=== PATIENT | male | born 1985 | race Caucasian/White ===

== ENCOUNTER → 2020-05-16 | Outpatient (CLI) | payer OTHER ==
[~2020-05-16] VITALS: Ht 193 cm; Wt 102.1 kg
[~2020-05-16] MED LIST: AMBIEN5 MG PO; BACLOFEN 10MG T10 MG PO; BUPROPION HCL150 M1 PO; NABUMETONE 500500 M2 PO; PAMELOR25 MG PO; SUPER THERAVIT1 EACH PO; ZYRTEC10 M5 PO
--- NOTE | ~2020-05-16 | HPC ---
[facility] [place] [address] PAIN MANAGEMENT CONSULTATION Name: LORENZA CALHOUN Room #: REG [facility] M..#: [id number] Admission: 05/16/20 Attend Phys: Charles Lemon DO Discharge: Date of : 87 Report #: [id number] THIS REPORT FOR: cc: FAM - No family physician/PCP FAM - No family physician/PCP Charles Lemon DO ~ DATE OF SERVICE: 05/16/2020 REFERRING PHYSICIAN: Eliseo Leong MD CHIEF COMPLAINT: Neck pain and bilateral head pain. HISTORY OF PRESENT ILLNESS: As you know, the patient is a 35-year-old male with longstanding history of headache, pain that began in 1997. The patient does have a history of seizure disorder as a younger individual and this led to migraine headache treatments. He continued to experience symptoms, but in a more bilateral distribution. He has been seeing Neurology for some time and being treated for his ongoing headaches, but it was believed the symptoms he was experiencing might require surgical intervention. He was then sent to see Dr. Eliseo Leong at [facility] for this ongoing chronic headache symptom. At that time, he is rating pain at 10/10 in severity at its worst, 3/10 at its best. He was describing the pain as equal in character, radiating towards the supraorbital ridge bilaterally. It was associated with dizziness, lightheadedness, blurry vision, photophobia and phonophobia. Even reported some tingling in the hands. The patient was seen by Dr. Leong and advised that the findings of his cervical spine are such that surgical options would not be recommended. He was referred to our clinic to discuss interventional treatment options. The patient indicates today his pain is continuous. Describes the pain as shooting, aching, throbbing, pounding and sharp. Places current pain score 5/10, daily average at 5-6/10, worst pain has been is 10/10. The patient states that movement, bright lights and loud noises tend to exacerbate symptoms, but these are only at times when his headache is already present. Pain is improved with pain medications, lying down ice pads and darkness. He has been referred to our service to discuss interventional treatment options. PAST MEDICAL HISTORY: 1. Migraine headaches. 2. History of epilepsy and seizure activity. 3. Emotional problems. PAST SURGICAL HISTORY: Appendectomy. SOCIAL HISTORY: The patient denies tobacco, IV or illicit drug use. Admits to approximately 1 alcoholic beverage per week. 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 He is working, not receiving workmen's compensation nor is he trying to obtain discrete benefits. He is not in litigation in regards to pain. He is unaccompanied at today's visit. REVIEW OF SYSTEMS: Positive for weight gain, fatigue and weakness, frequent and recurrent headaches, wearing corrective eyewear, blurred and double vision, hearing loss with tinnitus, chronic sinus problems with rhinitis, sore throat, voice changes, shortness of breath with walking or lying flat, chest pains, frequent urination, nocturia, change of force or stream urination, lightheadedness and dizziness, fatigue and weakness, head injury, memory loss with confusion, nervousness, depression, insomnia, excessive thirst, urination, heat and cold intolerance. All other review of systems negative per 12-point review of systems other than those listed in history of present illness. Pain impact score 63/70, severe interference of daily activities secondary to pain. ALLERGIES: No reported drug allergies. CURRENT MEDICATIONS: Nortriptyline 25 mg p.o. at bedtime, zolpidem 5 mg p.o. at bedtime, bupropion SR 150 mg 3 times a day, multivitamin 1 tab per day, Zyrtec 10 mg once a day. IMAGING: MRI cervical spine shows cervical disk disease that is mild in nature with mild facet arthropathy. No central canal nor neural foraminal stenosis. There is some ligamentum flavum buckling and mild changes noted at the C5 and C6 level. PHYSICAL EXAMINATION: VITAL SIGNS: Blood pressure 137/91, pulse is 102, respiratory rate 16 and unlabored. The patient is 100% on room air, height 6 feet 4 inches tall, weight 225 pounds, BMI calculated 27.4. GENERAL: Well-developed, well-nourished, well-hydrated 35-year-old male appearing his stated age. He is in no acute distress, awake, alert and oriented x 3. Current pain score 5/10. HEENT: Normocephalic, atraumatic. Pupils equal, round and reactive. NEUROLOGIC: Speech is fluent. Extraocular muscles are intact. The patient is wearing a mask in compliance with COVID-19 regulations. LUNGS: Clear, no wheeze, rhonchi or rales. CARDIOVASCULAR: Regular. No appreciable gallop, no rub. ABDOMEN: Soft, nontender, nondistended, normoactive bowel sounds. EXTREMITIES: Show no clubbing, no cyanosis. No appreciable edema. MUSCULOSKELETAL: The patient does have some palpatory tenderness over the paraspinal musculature of cervical spine. No spinous process tenderness. Deep palpation over the C2-C3 facets correlating to the third occipital nerve cause intensification of pain with radiation in his typical distribution. Radiation [facility] [address] [place] [address] PAIN MANAGEMENT CONSULTATION Name: LORENZA CALHOUN Room #: REG [facility] Charis.#: [id number] Admission: 05/16/20 Attend Phys: Charles Lemon DO Discharge: Date of : 86 Report #: [id number] is towards the occiput and along what appears to be the greater occipital nerve distribution with palpation. There are some tactile changes according to the patient on the right over the periauricular area consistent with the inferior occipital distribution. Upper extremity strength is 5/5, intact to light touch from C5 through T1 dermatomes. Spurling's test is negative for any cervical radicular symptoms. Cervical provocation testing is met with increasing pain. There is significant palpatory tenderness throughout the paraspinal musculature of the cervical and upper thoracic area. ASSESSMENT: 1. Cervical facet arthropathy. 2. Cervical spondylosis without radiculopathy. 3. Cervicogenic headache. 4. Third occipital neuralgia. 5. Tension headaches. PLAN: 1. Based on today's physical exam and history the patient has provided, the description the patient uses in regards to pain as well as the bilateral nature of symptoms and the sensation of pressure radiating from the cervical region over the occiput and towards the supraorbital ridge. This is consistent with a tension-like headache. The fact that the patient is noticing ever increasing headache frequency and intensity also goes along with tension type headaches. The palpatory tenderness over the third occipital nerves bilaterally is consistent with a tension headache as well. The patient has received Botox injections in the past, but these need to be done at a much deeper level to affect the splenius capitis muscle more efficiently. He is going to be following up with his neurologist tomorrow and I do recommend possible use of deeper injections to address the splenius capitis muscle and the tension headaches that are present. We also discussed other treatment options from a pain management standpoint. The following was discussed with the patient today. We discussed physical therapy, stretching exercises and traction techniques as an option for treatment. This could be very effective and very conservative way of treating symptoms. We typically sent patients for trial of traction type devices, if the trial is successful, then we recommend the patient obtain one of the devices and utilize them consistently. We discussed with the patient suggestions in medication adjustments. This will be done with neuropathic medications as well as the addition of a possible muscle relaxant to assist in relaxing some of the paraspinal muscles of the cervical region. We discussed with the patient, also in addition of a consistent nonsteroidal anti-inflammatory, which can be quite beneficial. We discussed interventional treatments to address the facet arthropathy itself. This will be done with intraarticular facet injections. We also discussed more aggressive treatment options, though I do not feel at this time, the patient is a candidate. After reviewing these risks and benefits of all proposed treatment options, the [address] [address] PAIN MANAGEMENT CONSULTATION Name: LORENZA CALHOUN Room #: REG ROBBY Vera#: [id number] Admission: 05/16/20 Attend Phys: Charles Lemon DO Discharge: Date of : 86 Report #: [id number] patient chose to make the following adjustments. 2. The patient will be discussing with his neurologist tomorrow at their appointment the possibility of utilizing a deeper Botox injection to address the distribution of the third occipital nerve as it exits the cervical canal and prior to its entry into the paraspinal musculature piercing the musculature and giving rise to the lesser and greater occipital nerves. This would be very effective treatment and has been shown to be quite effective for tension headaches for other individuals. He will discuss this with the neurologist at their appointment pending tomorrow. 3. The patient and I have adjusted his medication today, we will start the patient on baclofen 10 mg dose 1 tab p.o. t.i.d. for muscle spasming. I have advised the patient not to drive or operate heavy equipment while on this medication. He was given a prescription of #90 tablets and 2 refills, 3 months' worth of medication. 4. The patient and I did discuss the addition of a nonsteroidal anti-inflammatory. I have advised the patient to discontinue all other nonsteroidal anti-inflammatories in favor of starting nabumetone 500 mg dose 1 tab p.o. t.i.d. with meals. I have given the patient #90 tablets and 2 refills, 3 months' worth of medication. He is to watch for dyspepsia, worsening of blood pressure, lower extremity edema with their use. 5. We plan to see the patient back in followup visit in approximately 2-3 weeks. We wish the patient a chance to initiate medications and determine if this would be effective for treatment. We have also wanting to determine whether or not the deeper Botox injections will provide analgesic benefit for his tension headaches. We are hopeful that the patient will be able to see improvement with those injections as they have the most profound improvement for the more prolonged period of time, than any other treatment option we have available. He will keep us apprised of his response to that treatment. We are planning if the patient requires to undergo intra-articular facet injections at that followup visit. There is no authorization necessary if the patient requires those injections, we will certainly perform at the next appointment. 6. The patient and I did discuss adjustments in his current pillow. It appears that he is utilizing a pillow that is placing him in a greater position of forward flexion exacerbating his muscle spasming of the posterior cervical paraspinal musculature. An adjustment in his pillow may be quite beneficial as well. He will obtain this pillow at his earliest convenience and make these adjustments hopefully over the next couple of weeks. 7. We wish to thank Dr. Leong for the opportunity to see the patient in consultation. We will keep you apprised of his response to treatment as we address what appears to be cervical facet arthropathy and tension headache. Again, we wish to thank you for the opportunity to see the patient in consultation. By: 1750 Charles Lemon DO /nt
[2020-05-16 12:50] VITALS: BP 137/91
--- NOTE | 2020-05-16 13:38 | NUR ---
Pain Clinic Assessment: 1. History of Osteoarthritis: Not Applicable History of Rheumatoid Arthritis: Not Applicable 2. Height: 6 ft. 4 in. 193.0 cm. Weight: 225.0 lb. oz. 102.060 kg. Patient's BMI: 27.4 3. Vital Signs: BP: 137/91 Pulse: 102 Resp: 16 Temp: 02 Sat: 100 ECG Mon: 4. Pain Intensity: 5 5. Fall Risk: Dizziness: Y Needs help standing or walking: N Fallen in the last 3 months: N Fall risk comments: 6. Patient on Blood Thinner: None 7. History of Hypertension: N 8. Opioid Therapy greater than 6 weeks: Y Opiate Contract Signed: 9. Risk Assessment Tool Provided: MODERATE 10. Functional Assessment Tool: 63/70 11. Recreational Drug Use: Never Drug Type: Tobacco Use: Never Smoker Tobacco Type: Amount or Packs/day: How Many Years: Alcohol Use: Yes Frequency: Weekly Quant: 1-2
== END ==
LOC: PAIN 06:52
PROVIDERS: ATTEND Anesthesiology Pain Medicine
DX: M47.22 Other spondylosis with radiculopathy, cervical region (principal); G44.209 Tension-type headache, unspecified, not intractable

== ENCOUNTER → 2020-07-17 | Outpatient (CLI) | payer OTHER ==
[~2020-07-17] VITALS: Ht 193 cm; Wt 104.1 kg
[~2020-07-17] MED LIST changes: +BACLOFEN20 MG PO
[2020-07-17 07:57] VITALS: BP 138/92
--- NOTE | 2020-07-17 08:03 | NUR ---
Pain Clinic Assessment: 1. History of Osteoarthritis: Not Applicable History of Rheumatoid Arthritis: Not Applicable 2. Height: 6 ft. 4 in. 193.0 cm. Weight: 229.6 lb. oz. 104.146 kg. Patient's BMI: 28.0 3. Vital Signs: BP: 138/92 Pulse: 115 Resp: 18 Temp: 02 Sat: 99 ECG Mon: 4. Pain Intensity: 4-5 5. Fall Risk: Dizziness: N Needs help standing or walking: N Fallen in the last 3 months: N Fall risk comments: 6. Patient on Blood Thinner: None 7. History of Hypertension: N 8. Opioid Therapy greater than 6 weeks: Y Opiate Contract Signed: 9. Risk Assessment Tool Provided: MODERATE 10. Functional Assessment Tool: 63/70 11. Recreational Drug Use: Never Drug Type: Tobacco Use: Never Smoker Tobacco Type: Amount or Packs/day: How Many Years: Alcohol Use: Yes Frequency: Monthly Quant: 1-2 BEERS; EXACERBATES H/A'S SO STAYS AWAY FROM IT
--- NOTE | 2020-07-17 12:05 | HPC ---
[facility] [place] [address] PAIN MANAGEMENT CONSULTATION Name: LORENZA CALHOUN Room #: REG Abhijeet MNikkie.#: [id number] Admission: 07/17/20 Attend Phys: Charles Lemon DO Discharge: Date of : 86 Report #: [id number] THIS REPORT FOR: cc: FAM - No family physician/PCP FAM - No family physician/PCP Charles Lemon DO ~ DATE OF SERVICE: 07/17/2020 CHIEF COMPLAINT: Neck pain and bilateral head pain. HISTORY OF PRESENT ILLNESS: As you know, the patient is a 35-year-old male with longstanding history of neck pain and headache symptom generated from the cervical area began in 1997. He does have a history of seizure disorder as a younger individual that believed to have led to his migraine headaches. He continues to follow up with Neurology and recently underwent Botox injections into the cervical paraspinal musculature, which gave 5 days improvement in his symptoms with near complete resolution of symptoms, but unfortunately his pain returned. This does indicate cervicogenic origin of the headache and head pain he has been experiencing. He returns today in followup visit to discuss treatment options. He has sought surgical consultation with Dr. Eliseo Leong who advised more conservative treatment option initially. We have made adjustments in the patient's pillows and his medications as well as his activities. Even with all of these alterations and conservative treatment he is continuing to experience symptoms that he rates anywhere from 4-5/10. He indicates that the baclofen 10 mg dose is well tolerated. He did note improvement in symptoms and wishes to discuss the possible adjustments in that therapy. He returns today to discuss treatment options for continued cervicogenic headache. ALLERGIES: No known drug allergies. CURRENT MEDICATIONS: Nortriptyline 25 mg p.o. at bedtime, zolpidem 5 mg p.o. at bedtime, bupropion SR 150 mg t.i.d., multivitamin 1 tab per day, Zyrtec 10 mg per day, baclofen 10 mg 3 times a day, nabumetone 500 mg 3 times a day. SOCIAL HISTORY: The patient denies tobacco use. Denies IV or illicit drug use. Admits to 1 alcoholic beverage per week. He is currently employed as a social economist/machining and assembly supervisor. He is working, not receiving workmen's compensation, unaccompanied today. IMAGING: No new imaging available. PHYSICAL EXAMINATION: VITAL SIGNS: Blood pressure is 138/92, pulse is 115, respiratory rate 18 and unlabored. The patient is 99% on room air, height 6 feet 4 inches tall, weight 229.6 pounds, BMI calculated 28.0. [place] [address] PAIN MANAGEMENT CONSULTATION Name: LORENZA CALHOUN Room #: REG ROBBY Vizcaino.#: [id number] Admission: 07/17/20 Attend Phys: Charles Lemon DO Discharge: Date of : 86 Report #: [id number] GENERAL: Well-developed, well-nourished, well-hydrated 35-year-old male appearing stated age, placing current pain score at 4-5/10. HEENT: Normocephalic, atraumatic. Pupils equal, round and reactive. NEUROLOGIC: Speech is fluent. The patient deemed a good historian. The patient is wearing a mask in compliance with COVID-19 regulations. EXTREMITIES: Show no clubbing, no cyanosis. No appreciable edema. MUSCULOSKELETAL: The patient remains with palpatory tenderness over the paraspinal musculature of cervical spine. No spinous process tenderness. Deep palpation over the C2-C3 facet joints coiling the third occipital nerve cause intensification of pain as noted in previous evaluation. Cervical provocation testing including cervical flexion, cervical rotation, and lateral flexion of the cervical spine intensifies neck pain. Aguirre is lightly improved with cervical extension. Spurling's test is negative. ASSESSMENT: 1. Cervical facet arthropathy. 2. Cervical spondylosis without radiculopathy. 3. Cervicogenic headache. 4. Third occipital neuralgia. 5. Tension headaches. PLAN: 1. Based on today's physical exam and history the patient has provided and, the description that the patient uses in regards to pain, it appears the patient continues to experience cervicogenic headaches secondary to third occipital neuralgia. The patient has undergone Botox injections with his neurologist, which provided 5 days of significant pain improvement, but unfortunately his symptoms recurred quite quickly. He has returned today in followup visit to discuss options for treatment. He continues to use baclofen 10 mg t.i.d. without any noted side effects and nabumetone for baseline pain control. The patient does report some benefit with these 2 medications. He has also changed his pillow to a contour style pillow in hopes of better anatomical positioning during sleep. Even with these changes, the patient continues to experience symptoms. He returns to discuss more aggressive treatment options. 2. The patient and I did discuss the possibility of undergoing C2-C3 intraarticular facet injections and third occipital nerve blocks to address cervicogenic headache. The patient is agreeable to look towards that option for treatment. I did advise the patient we do not offer radiofrequency lesioning of the medial branch nerves of the cervical spine or 3rd occipital nerve. He would have to seek other treatment. If he wishes to move forward with more aggressive treatment options other than the third occipital nerve blocks and C2-C3 intraarticular facet injections. The patient is agreeable to undergo the procedure in hopes of improving pain. The patient was advised that due to third libertarian bear restrictions, authorization would have to be obtained before the patient could undergo bilateral C2-C3 [facility] [address] [place] [address] PAIN MANAGEMENT CONSULTATION Name: LORENZA CALHOUN Room #: REG ROBBY Vera#: [id number] Admission: 07/17/20 Attend Phys: Charles Lemon DO Discharge: Date of : 86 Report #: [id number] intra-articular facet injections and third occipital nerve blocks. We will begin this process immediately. Once we have this authorization, we will contact the patient to return to our clinic to undergo this injection therapy in hopes of improving pain. We will keep the patient apprised of the response of our progress to obtain this authorization and have him return as quickly as possible. 3. We recommend increasing patient's baclofen from 10 mg t.i.d. to 20 mg t.i.d. I have given the patient #90 tablets. He is to watch for side effects of sleepiness, disorientation, confusion, mental slowing with the use. If he notes any side effects, reduce to the 10 mg dose and continue at current therapy. Prescription was sent via e-scribe to local pharmacy. 4. The patient will continue on nabumetone 500 mg dose 1 tab p.o. t.i.d. I have given the patient #90 tablets with 2 refills, 3 months' worth of medication. He will continue this therapy for baseline pain control. 5. We plan to see the patient back in followup visit once we have the opportunity to obtain this authorization to have the patient undergo C2-C3 intra-articular facet injections bilaterally and third occipital nerve blocks. This will provide us with hopefully both therapeutic and diagnostic information in regards to the patient's cervicogenic headaches. <ELECTRONICALLY SIGNED> By: Charles Lemon DO 07/17/20 1205 [id number] Charles Lemon DO /nt
== END ==
LOC: PAIN 05-30 14:19
PROVIDERS: ATTEND Anesthesiology Pain Medicine
DX: M47.812 Spondylosis without myelopathy or radiculopathy, cervical region (principal); M46.92 Unspecified inflammatory spondylopathy, cervical region; M54.81 Occipital neuralgia; G44.209 Tension-type headache, unspecified, not intractable; Z88.8 Allergy status to other drugs, medicaments and biological substances; Z79.899 Other long term (current) drug therapy